=== PATIENT | female | born 1990 | race Caucasian/White ===

== ENCOUNTER 2018-04-14 17:09 | Observation (INO) | payer OTHER ==
[~2018-04-14] VITALS: Ht 160 cm; Wt 94.3 kg
[2018-04-14] MEDS ORDERED: RINGERS SOLUTION,LACTATED 1,000 ML IV ONE (20:00)
== END 2018-04-14 21:40 | disposition home or self-care (01) ==
LOC: 4S 17:09
PROVIDERS: ADMIT Obstetrics & Gynecology; ATTEND Obstetrics & Gynecology
DX: O26.852 Spotting complicating pregnancy, second trimester (principal); O26.892 Other specified pregnancy related conditions, second trimester; R10.30 Lower abdominal pain, unspecified; Z3A.23 23 weeks gestation of pregnancy
CPT/HCPCS: 76811; 81002; G0378; J7120